=== PATIENT | male | born 1985 | race Caucasian/White ===

== ENCOUNTER 2019-08-19 19:42 | Emergency (ER) | payer SELFPAY ==
[2019-08-19 20:10] VITALS: BP 135/85; PULSE 90; TEMP 99; BMI 29.9
[2019-08-19] MEDS ORDERED: ACETAMINOPHEN 500 MG TABLET (FP) PO ONE (20:30)
--- NOTE | 2019-08-19 20:32 | PDOC ---
History of Present Illness - General Chief Complaint: Cold Symptoms Stated Complaint: FEVER Time Seen by Provider: 08/19/19 20:17 - History of Present Illness Initial Comments: 08/19/19 20:31 34-year-old male without comorbidities presents for evaluation of flulike symptoms and left-sided lower back pain and flank pain x2 days with a complaint of trickling urinary stream drenching night sweats fever and chills Past History - Past Medical History Allergies/Adverse Reactions: Allergies Allergy/AdvReac Type Severity Reaction Status Date / Time shellfish derived Allergy Verified 08/19/19 20:10 Home Medications: Ambulatory Orders Azithromycin [Zithromax -] 250 mg PO UTDICT #6 tab 08/19/19 COPD: No - Psycho Social/Smoking Cessation Hx Smoking History: Never smoked Review of Systems - Review of Systems Constitutional: Yes: Chills, Fever, Malaise, Night Sweats HEENTM: Yes: Nose Congestion Musculoskeletal: Yes: Back Pain *Physical Exam - Vital Signs Last Vital Signs Temp Pulse Resp BP Pulse Ox 99.0 F 90 19 135/85 97 08/19/19 20:06 08/19/19 20:06 08/19/19 20:06 08/19/19 20:06 08/19/19 20:06 - Physical Exam 08/19/19 20:31 GENERAL: The patient is awake, alert, and fully oriented, in no acute distress. HEAD: Normal with no signs of trauma. EYES: sclera anicteric, conjunctiva clear. ENT: Ears normal tympanic membranes normal oropharynx clear uvula midline NECK: Normal range of motion LUNGS: Breath sounds equal, clear to auscultation bilaterally. No wheezes, and no crackles. HEART: S1 and S2 without murmur, rub or gallop. ABDOMEN: Soft, nontender, normoactive bowel sounds. No guarding, no rebound. No masses. EXTREMITIES: Normal range of motion, no edema. No clubbing or cyanosis. No cords, erythema, or tenderness. NEUROLOGICAL: Cranial nerves II through XII grossly intact. Normal speech, normal gait. PSYCH: Normal mood, normal affect. SKIN: Warm, Dry, normal turgor, no rashes or lesions noted. ED Treatment Course - LABORATORY CBC & Chemistry Diagram: 08/19/19 20:30 01/11/20 20:30 - RADIOLOGY Radiology Studies Ordered: Category Date Time Status ABDOMEN & PELVIS CT W/O CONTR [CT] Stat CT Scan 08/19/19 20:30 Ordered Medical Decision Making - Medical Decision Making 08/19/19 20:31 34-year-old male insisting on a kidney stone work-up of explained to him these are flu symptoms. He does have minimal left-sided lower back pain and CVA tenderness I am doing a CAT scan because of trickling urination and he feels obstructed Discharge - Discharge Information Problems reviewed: Yes Clinical Impression/Diagnosis: Pneumonia Clinical Impression/Diagnosis: (Ruled Out): Viral URI with cough Condition: Stable Disposition: HOME - Admission No - Additional Discharge Information Prescriptions: Azithromycin [Zithromax -] 250 mg PO UTDICT #6 tab - Follow up/Referral Referrals: Shaun England MD [Staff Physician] - - Patient Discharge Instructions Patient Printed Discharge Instructions: DI for Pneumonia -- Adult Additional Instructions: Your CAT scan today was negative for a kidney stone however it did show a pneumonia. Tylenol Motrin as directed for fevers. Please take the antibiotics as directed. Start those tonight. Return to the emergency room for worsening symptoms and without fail follow-up with your primary care physician in 1 to 2 days for further evaluation and treatment options. You will need a repeat chest x-ray in about a month. This can be done by your primary care physician. - Post Discharge Activity
[2019-08-19 21:10] LABS: BASO % 0.4 % (0-2.0); EOS % 0.8 % (0-4.5); HEMATOCRIT 45.6 % (35.4-49); HEMOGLOBIN 15.5 GM/dL (11.7-16.9); LYMPH % 18.5 % (8-40); MCH 30.6 pg (25.7-33.7); MCHC 33.9 g/dl (32.0-35.9); MEAN CELL VOLUME 90.2 fl (80-96); MEAN PLT VOLUME 8.3 fl (7.5-11.1); MONO % 8.5 % (3.8-10.2); NEUT % 71.8 % (42.8-82.8); PH,URINE 7.5 (5.0-8.0); PLATELET COUNT 199 K/MM3 (134-434); RBC 5.06 M/mm3 (4.00-5.60); RDW 12.8 % (11.9-15.9); URINE APPEARANCE CLEAR; URINE BILIRUBIN NEGATIVE (NEGATIVE); URINE COLOR YELLOW; URINE GLUCOSE (UA) NEGATIVE (NEGATIVE); URINE KETONE NEGATIVE (NEGATIVE); URINE LEUK ESTERASE NEGATIVE (NEGATIVE); URINE NITRITE NEGATIVE (NEGATIVE); URINE PROTEIN NEGATIVE (NEGATIVE); WHITE BLOOD COUNT 6.1 K/mm3 (4.0-10.0)
[2019-08-19 21:32] LABS: ALBUMIN 4.2 g/dl (3.4-5.0); BILIRUBIN,TOTAL 0.8 mg/dL (0.2-1); BLOOD UREA NITROGEN 9.8 mg/dL (7-18); CALCIUM 9.2 mg/dL (8.5-10.1); CREATININE 1.1 mg/dL (0.55-1.3); POTASSIUM 3.8 mmol/L (3.5-5.1); TOT PROT 8.1 g/dl (6.4-8.2)
[2019-08-19] MEDS ORDERED: ACETAMINOPHEN 500 MG TABLET (FP) ONE (21:38)
== END 2019-08-19 22:54 | disposition home or self-care (01) ==
LOC: JERFT 19:42
DX: J18.9 Pneumonia, unspecified organism (principal); Z91.013 Allergy to seafood
CPT/HCPCS: 36415; 74176-TC; 80053; 81003; 85025; 87086; 99282-25